=== PATIENT | male | born 1985 | race African-American/Black ===

== ENCOUNTER 2017-04-25 20:43 | Emergency (ER) | payer OTHER ==
[~2017-04-25] VITALS: Ht 177.8 cm; Wt 77.1 kg
[~2017-04-25 20:43] MED LIST: IBUPROFEN 800800 M1 PO; IBUPROFEN 800800 MG PO; TRAMADOL 50 MG50 MG PO
[2017-04-25 21:45] VITALS: BP 126/69
[2017-04-25] MEDS ORDERED: MOBIC15 MG PO (21:48)
== END 2017-04-25 22:33 | disposition home or self-care (01) ==
LOC: ER 20:43
DX: S39.012A Strain of muscle, fascia and tendon of lower back, initial encounter (principal); F17.210 Nicotine dependence, cigarettes, uncomplicated; Z88.8 Allergy status to other drugs, medicaments and biological substances; W18.40XA Slipping, tripping and stumbling without falling, unspecified, initial encounter; Y93.89 Activity, other specified; Y92.89 Other specified places as the place of occurrence of the external cause; Y99.8 Other external cause status

== ENCOUNTER 2018-08-07 15:31 | Emergency (ER) | payer OTHER ==
[~2018-08-07] VITALS: Ht 177.8 cm; Wt 79.8 kg
[~2018-08-07 15:31] MED LIST changes: +MOBIC15 MG PO
[2018-08-07] MEDS ORDERED: IBUPROFEN 600600 M1 PO (16:54)
[2018-08-07] MEDS ORDERED: FLEXERIL PO (16:54)
[2018-08-07 17:50] VITALS: BP 133/69
== END 2018-08-07 17:30 | disposition home or self-care (01) ==
LOC: ER 15:31
DX: S39.012A Strain of muscle, fascia and tendon of lower back, initial encounter (principal); S50.02XA Contusion of left elbow, initial encounter; F17.210 Nicotine dependence, cigarettes, uncomplicated; Z91.048 Other nonmedicinal substance allergy status; W01.0XXA Fall on same level from slipping, tripping and stumbling without subsequent striking against object, initial encounter; Y92.89 Other specified places as the place of occurrence of the external cause; Y93.01 Activity, walking, marching and hiking; Y99.8 Other external cause status

== ENCOUNTER 2019-04-15 14:47 | Emergency (ER) | payer OTHER ==
[~2019-04-15] VITALS: Ht 175.3 cm; Wt 77.1 kg
[~2019-04-15 14:47] MED LIST changes: +FLEXERIL PO; +IBUPROFEN 600600 M1 PO
[2019-04-15] MEDS ORDERED: MOBIC15 MG PO (15:19)
[2019-04-15 15:31] VITALS: BP 122/74
== END 2019-04-15 16:39 | disposition home or self-care (01) ==
LOC: ER 14:47
DX: D17.39 Benign lipomatous neoplasm of skin and subcutaneous tissue of other sites (principal); F17.210 Nicotine dependence, cigarettes, uncomplicated; Z91.09 Other allergy status, other than to drugs and biological substances